=== PATIENT | male | born 1975 | race Caucasian/White ===

== ENCOUNTER → 2018-11-22 | Outpatient (CLI) | payer BC, OTHER ==
[~2018-11-22] MED LIST: BACLOFEN 10MG T10 MG PO; NABUMETONE 500500 M1 PO; WELLBUTRIN XL300 MG PO
--- NOTE | 2018-11-25 18:26 | SLE ---
[facility] [place] [address] POLYSOMNOGRAPHY STUDY Name: LUPE GUADARRAMA Room #: REG [facility]#: [id number] Admission: 11/22/18 ������������������ Attend Phys: Mic Queen MD Discharge: ������������������ Date of : 71 Report #: [id number] THIS REPORT FOR: //name// CC: Mic Cisneros MD DATE OF SERVICE: 11/22/2018 SLEEP STUDY ATTENDING PHYSICIAN: Dr. Marco Antonio Cisneros. The patient is 43 years old who weighs 255 pounds with a BMI of 36.6. The patient had a home sleep study and was found to have moderate ROGELIO at an AHI of 23 per hour. The patient returned for in-lab CPAP titration study performed at [facility]. During the night study, the patient spent 456 minutes in bed and slept for 404 minutes with a sleep efficiency of 88%. Sleep latency was 140 minutes, which was prolonged with a REM latency of 54 minutes. Overall, sleep architecture showed normal stage 1 sleep, increased stage 2 sleep, reduced N3 sleep and increased REM sleep, which is 29% of the total sleep time. EKG monitoring revealed normal sinus rhythm, average heart rate of 69 beats per minute. No sustained arrhythmias observed. No clinically significant PLMS seen. The patient was started on CPAP at a pressure of 5 cm water and titrated up to 12 cm water. At the final pressure, the patient slept for 101 minutes. The patient had 51 minutes of REM sleep and supine sleep throughout. The patient's AHI was reduced to 0.6 per hour and oxygen saturation remained above 92%. IMPRESSION: 1. Moderate sleep apnea diagnosed by recent home sleep study. 2. No clinically significant periodic limb movements of sleep. RECOMMENDATIONS: 1. CPAP at 12 cm water completely eliminated the patient's sleep apnea and should be used on a nightly basis. 2. Follow up in 4-6 weeks to assess compliance with CPAP and to document clinical improvement. 3. Weight loss is strongly advised. 4. Avoid STONER HAND depressants. [facility] [address] [place] [address] POLYSOMNOGRAPHY STUDY Name: LUPE GUADARRAMA Room #: REG [facility].#: [id number] Admission: 11/22/18 ������������������ Attend Phys: Mic Queen MD Discharge: ������������������ Date of : 71 Report #: [id number] 5. Cautioned regarding driving until symptoms of sleep apnea resolve with the use of CPAP. ��������������������������������������������� <ELECTRONICALLY SIGNED> ���������������������������������������� By: Mic Queen MD ��������������������������������������������� 11/25/18 [id number] [id number] Mic Queen MD /nt
== END ==
LOC: SLEEPLAB 16:20
DX: G47.30 Sleep apnea, unspecified (principal)

== ENCOUNTER → 2020-03-29 | Outpatient (CLI) | payer BC, OTHER ==
[~2020-03-29] VITALS: Ht 177.8 cm; Wt 126.5 kg
[~2020-03-29] MED LIST changes: +NORVASC10 MG PO; +TRAZODONE HCL50 MG PO
--- NOTE | ~2020-03-29 | HPC ---
[facility] [place] [address] PAIN MANAGEMENT CONSULTATION Name: LUPE GUADARRAMA Room #: REG JACKY BenavidezStefano#: [id number] Admission: 03/29/20 Attend Phys: Adarsh Cooley DO Discharge: Date of : 71 Report #: [id number] THIS REPORT FOR: cc: Elizabeth Gautam DNP, Mary E. DNP Johnson, James E. DO ~ CC: Adarsh AGUILAR DATE OF SERVICE: 03/29/2020 CHIEF COMPLAINT: Neck pain, right upper extremity pain with paresthesias. HISTORY OF PRESENT ILLNESS: As you know, the patient is a 44-year-old male who reports a greater than 1-month history of neck pain, right upper extremity pain with paresthesias. The patient denies injury or trauma that may have led to symptom development. He noted a recent increase in neck pain and right upper extremity pain after returning to the gym to begin exercise to address his increasing weight. He reports pain that radiates from the right neck all the way into the thumb and index finger. It is exacerbated with movement of the cervical spine, improves with rest and relaxation. The patient indicates the pain to be steady, sharp, stabbing, numbness and tingling. He places his current pain score 6/10. Other than the increase in pain during working out at the gym, he cannot attribute his symptom development to any specific injury or trauma. He has been referred to our service to discuss treatment options for suspected cervical radiculopathy. The patient indicates today pain is steady and continuous. He describes the pain as sharp, stabbing, numbness and tingling. He places current pain score 4/10, daily average at 6/10, worst pain has been 7/10. The patient states that pain is improved with lying down and sometimes with repositioning. He indicates nothing tends to improve pain. Due to lack of improvement with conservative treatment options, the patient was referred to our clinic to discuss treatment options for suspected cervical radiculopathy. He is seen here today without new imaging. We do have an MRI from 2014, which showed changes at C5-C6 and C6-C7, but otherwise a relatively normal MRI. PAST MEDICAL HISTORY: 1. Depression. 2. Hypertension. 3. Insomnia. PAST SURGICAL HISTORY: Ear surgery, 2002. SOCIAL HISTORY: The patient reports he is a continual smoker, he smokes 08/29 [facility] [address] [place] [address] PAIN MANAGEMENT CONSULTATION Name: LUPE GUADARRAMA Room #: REG JACKY Mariluz#: [id number] Admission: 03/29/20 Attend Phys: Adarsh Cooley DO Discharge: Date of : 71 Report #: [id number] pack tobacco per day and has done so for 15 years. He admits to a consistent use of marijuana. He also admits to the use of alcohol at least once a day. He is working, not receiving workmen's compensation nor is he trying to obtain disability benefits. He is unaccompanied at today's visit. REVIEW OF SYSTEMS: Positive for fatigue and weakness, frequent and recurrent headaches, numbness and tingling sensations involving the right upper extremity, depression and insomnia. All other review of systems negative per 12-point review of systems other than those listed in history of present illness. Pain impact score 39/70 indicating moderate interference of daily activities secondary to pain. IMAGING: No new imaging available. PHYSICAL EXAMINATION: VITAL SIGNS: Blood pressure 149/100, pulse is 70, respiratory rate 16 and unlabored. The patient is 96% on room air. Height 5 feet 10 inches tall, weight 278.8 pounds, BMI calculated 40. GENERAL: Well-developed, well-nourished, well-hydrated, class 2, morbidly obese 44-year-old male appearing stated age, pain is rated today at 6/10. HEENT: Normocephalic, atraumatic. Pupils equal, round and reactive to light. Extraocular muscles are intact. Sclerae nonicteric without injection. NEUROLOGIC: Cranial nerves 2-12 grossly intact. Speech is fluent. The patient deemed a good historian. LUNGS: Clear, no wheezes, rhonchi or rales. CARDIOVASCULAR: Regular. No appreciable gallop or rub. ABDOMEN: Soft, obese, normal active bowel sounds. EXTREMITIES: Show no clubbing, no cyanosis, no edema. MUSCULOSKELETAL: Upper extremity strength appears symmetrical 5/5 and slight giveaway strength noted with materials management manager over the index finger and thumb on the right when compared to left. There are no changes from activity standpoint in the musculature when comparing left upper extremity to right. Spurling's test is positive on the right, negative left. Cervical provocation testing is met with increased pain with lateral flexion and rotation to the right. He has equal and symmetrical deep tendon reflexes 2+/4, biceps, brachialis and triceps. ASSESSMENT: 1. Cervical radiculopathy. 2. Cervical spondylosis with radiculopathy. 3. Chronic intractable pain. 4. Essential hypertension. 5. Morbid obesity. PLAN: 1. Based on today's physical exam and history the patient has provided, the [facility] [address] [place] [address] PAIN MANAGEMENT CONSULTATION Name: LUPE GUADARRAMA Room #: REG JACKY Mcgraw#: [id number] Admission: 03/29/20 Attend Phys: Adarsh Cooley DO Discharge: Date of : 71 Report #: [id number] description the patient uses in regards to pain as well as the location of symptoms, it would appear he is suffering from cervical radiculopathy. Cervical provocation testing and Spurling's test is positive on the right consistent with cervical radicular symptoms. The patient's distribution appears to be on the C6 dermatome. We discussed with the patient the treatment options available based on the physical exam as we do not have imaging available to determine the extent of pathology in the cervical region. The following was discussed with the patient today. We discussed physical therapy, stretching exercises and traction techniques as a treatment option. We discussed medication management utilizing neuropathic pain medication such as amitriptyline, nortriptyline, Cymbalta and Lyrica as well as possibly gabapentin. We discussed cervical epidural injections under fluoroscopic guidance and ultimately surgical options. After reviewing risks and benefits of all proposed treatment options, the patient chose to undergo imaging and discuss cervical epidural injection at our next visit depending on the pathology found from imaging. 2. The patient will be sent for x-ray imaging of the cervical spine, we will review those findings once they are available. We will contact the patient with the findings. 3. Depending on the findings of the x-ray imaging, we may ultimately need to have the patient undergo a cervical MRI. Cervical MRI will provide us with information in regards to the soft tissues, specifically the central canal, the neural foraminal potential encroachments and disk positioning. We will determine whether or not an MRI of the cervical spine will be necessary based on x-ray imaging. 4. We will have the patient return in 1 week for further evaluation and discuss the possibility of undergoing cervical epidural injections. We are hopeful by that time the patient will have completed his imaging studies and will be able to review those findings. 5. I have recommended the patient follow up with his primary care team as quickly as possible. His blood pressure today is 149/100 and needs to be treated aggressively, given his young age and the elevated diastolic pressure that is most concerning. The patient needs to follow up with his PCP as quickly as possible. 6. We wish to thank Elizabeth Gautam for the referral of the patient to our clinic. We will keep you apprised of his response to treatment as we address suspected cervical radiculopathy. We will also keep you apprised of the findings of the imaging studies once they are made available. He will be returning to discuss treatment for his essential hypertension. We will keep you apprised of his response to treatment for cervical radiculopathy [place] [address] PAIN MANAGEMENT CONSULTATION Name: LUPE GUADARRAMA Room #: REG JACKY Mcgraw#: [id number] Admission: 03/29/20 Attend Phys: Adarsh Cooley DO Discharge: Date of : 71 Report #: [id number] are deemed necessary. Again, we wish to thank you for the opportunity to see the patient in consultation. By: [id number] [id number] Adarsh Cooley DO /nt
[2020-03-29 08:39] VITALS: BP 149/100
--- NOTE | 2020-03-29 09:06 | NUR ---
Pain Clinic Assessment: 1. History of Osteoarthritis: Not Applicable History of Rheumatoid Arthritis: Not Applicable 2. Height: 5 ft. 10 in. 177.8 cm. Weight: 278.8 lb. oz. 126.463 kg. Patient's BMI: 40.0 3. Vital Signs: BP: 149/100 Pulse: 70 Resp: 16 Temp: 02 Sat: 96 ECG Mon: 4. Pain Intensity: 6 5. Fall Risk: Dizziness: N Needs help standing or walking: N Fallen in the last 3 months: N Fall risk comments: 6. Patient on Blood Thinner: None 7. History of Hypertension: Y 8. Opioid Therapy greater than 6 weeks: N Opiate Contract Signed: 9. Risk Assessment Tool Provided: Opioid Risk Tool 10. Functional Assessment Tool: 11. Recreational Drug Use: Past greater than 3 mos Drug Type: MARIJUANIA Tobacco Use: Former Smoker Tobacco Type: Cigarettes Amount or Packs/day: 1/4 How Many Years: 15 Alcohol Use: Yes Frequency: Weekly Quant: 10
== END ==
LOC: PAIN → RAD 06:44 → PAIN 06:44
PROVIDERS: ATTEND Anesthesiology Pain Medicine
DX: M47.22 Other spondylosis with radiculopathy, cervical region (principal); M79.641 Pain in right hand; R20.2 Paresthesia of skin; G89.29 Other chronic pain; I10 Essential (primary) hypertension; E66.01 Morbid (severe) obesity due to excess calories; M48.02 Spinal stenosis, cervical region; M50.122 Cervical disc disorder at C5-C6 level with radiculopathy

== ENCOUNTER → 2020-04-04 | Outpatient (CLI) | payer BC, OTHER | LOC: MRI 13:24 | PROVIDERS: ATTEND Anesthesiology Pain Medicine | DX: M47.812 Spondylosis without myelopathy or radiculopathy, cervical region (principal); M48.02 Spinal stenosis, cervical region; M25.78 Osteophyte, vertebrae; M50.21 Other cervical disc displacement, high cervical region ==

== ENCOUNTER → 2020-04-05 | Outpatient (CLI) | payer BC, OTHER ==
[~2020-04-05] VITALS: Ht 177.8 cm; Wt 125.6 kg
--- NOTE | ~2020-04-05 | HPC ---
[facility] [address] [place] [address] PAIN MANAGEMENT CONSULTATION Name: LUPE GUADARRAMA Room #: REG JACKY CarrascoStefanoJeancarlosStefano#: [id number] Admission: 04/05/20 Attend Phys: Adarsh Cooley DO Discharge: Date of : 71 Report #: [id number] THIS REPORT FOR: cc: Elizabeth Gautam DNP, Mary E. DNP Johnson, James E. DO ~ CC: Adarsh Gautam MILITARY PROFESSIONAL DATE OF SERVICE: 04/05/2020 CHIEF COMPLAINT: Neck pain, right upper extremity pain with paresthesias. HISTORY OF PRESENT ILLNESS: As you know, the patient is a very pleasant 44-year-old male who returned to our clinic on 03/29/2020 with a 1-month history of increasing neck pain, right upper extremity pain with paresthesias. He believes he may have injured his neck while doing exercises at the gym. He subsequently discontinued these exercises, but continued to experience symptoms. He returned to our clinic to discuss options for treatment. We saw the patient in consultation on that day and advised the patient that further imaging would be necessary as we only had MRI from 2014 and with a new distribution of symptoms and new intensity of pain, it was important to followup to determine what may have changed. He returns today in followup visit to discuss the findings of his MRI. He is placing pain today at 2/10. He denies new injury, trauma or any changes in medical history since our visit of 03/29/2020. ALLERGIES: No known drug allergies. CURRENT MEDICATIONS: Bupropion XL 300 mg once a day, amlodipine 10 mg once a day, trazodone 50 mg p.o. at bedtime. SOCIAL HISTORY: Remains the same. He reports he smokes cigarettes about 3 cigarettes per day and has done so for the past 8 years. He admits to the use of marijuana on a near daily basis. He drinks approximately 8 drinks per week. He is working, not receiving workmen's compensation, unaccompanied today. IMAGING: MRI of the cervical spine obtained 04/04/2020 shows significant changes at the C5-C6 and C6-C7 levels with degenerative changes resulting in severe central canal stenosis. This has increased from [id number] central canal stenosis in 2014. The patient was advised the spinal canal at C5-C6 measures 6.8 mm and C6-C7 measures 5.6 mm. PHYSICAL EXAMINATION: VITAL SIGNS: Blood pressure 158/98, pulse 81, respiratory rate 18 and unlabored. The patient is 98% on room air. Height 5 feet 10 inches [place], [place] [address] PAIN MANAGEMENT CONSULTATION Name: LUPE GUADARRAMA Room #: [facility]#: [id number] Admission: 04/05/20 Attend Phys: Adarsh Cooley DO Discharge: Date of : 71 Report #: [id number] weight 277 pounds, BMI calculated 39.7. GENERAL: Well-developed, well-nourished, well-hydrated exogenously obese 44-year-old male. He appears stated age. He is placing pain today at 2/10. HEENT: Normocephalic, atraumatic. Pupils equal, round and reactive. Speech fluent. EXTREMITIES: Show no clubbing, no cyanosis, and no appreciable edema. MUSCULOSKELETAL: Upper extremity strength remains symmetrical 5/5. Slight giveaway strength is once again noted on the right when compared to left, this is mainly with sample body builder strength of the index and thumb when compared to left. Cervical provocation testing is met with increased pain, specifically with lateral flexion and rotation to the right. Spurling's test positive on the right. ASSESSMENT: 1. Cervical radiculopathy. 2. Severe cervical central canal stenosis. 3. Cervical spondylosis with radiculopathy. 4. Chronic intractable pain. PLAN: 1. The patient returns today in followup visit where we have reviewed his MRI in its entirety. I have advised the patient of the findings at the C5-C6 and C6-C7 levels, which has shown a significant change since the 2014 imaging, which only showed mild changes at the C5-C6 and C6-C7 level. The patient now has severe central canal stenosis measuring 6.8 mm at C5-C6 and measuring 5.6 mm at C6-C7. There is also noted severe neural foraminal stenosis at both levels. After this review over the findings of his MRI and how they correlate to his current symptoms, we discussed treatment options we have available. Following was discussed with the patient today. We discussed physical therapy, stretching exercises and traction techniques as a treatment option. We discussed medication management adding neuropathic medications to his current list of therapies. We discussed cervical epidural injection under fluoroscopic guidance and ultimately surgical decompression at the C5-C6 and C6-C7 level. After reviewing the risks and benefits of all proposed treatment options, the patient chose to begin with a cervical epidural injection under fluoroscopic guidance. 2. The patient was advised of the risks and benefits of a cervical epidural injection. These risks include but are not necessarily limited to; bleeding, bruising, infection, worsening of pain, no relief of pain, temporary or permanent muscle weakness, temporary or permanent nerve damage, possible paralysis and . The patient states understood and wished to proceed. 3. No medication changes made at today's visit. The patient will continue current medical therapy as prior prescribed. 4. We did provide the patient with names of neurosurgeons we would recommend for him to look into, to determine if he wishes a referral to any one of these [facility] [address] [place] [address] PAIN MANAGEMENT CONSULTATION Name: LUPE GUADARRAMA Room #: REG RUBIMaggy Benavidez.#: [id number] Admission: 04/05/20 Attend Phys: Adarsh Cooley DO Discharge: Date of : 71 Report #: [id number] individuals who are skilled at treatment for cervical radiculopathy secondary to stenosis. He will review those names and determine who is covered by his insurance and who he could see most rapidly. He will contact our clinic if he requests a referral. 5. We will see the patient back in followup visit in about 31 days. At that time, review the efficacy of today's cervical epidural injection to determine if next in the series might be warranted. DESCRIPTION OF PROCEDURE: C7-T1 cervical epidural steroid injection under fluoroscopic guidance. After obtaining written consent, the patient was taken back to fluoroscopy suite, placed in prone position with separate pillows under chest and forehead to decrease cervical lordosis. Skin overlying the cervical area then prepped and draped in aseptic fashion. C7-T1 cervical interspace was identified by AP fluoroscopy. Skin and subcutaneous tissue overlying target site of injection anesthetized with 3 mL of 1% lidocaine. A 20-gauge 3-1/2 inch Tuohy needle advanced under fluoroscopic guidance towards the epidural space using midline approach. Epidural space identified using loss of resistance to air technique. After negative aspiration for heme or cerebrospinal fluid, 1 mL of Omnipaque injected. Cervical epidurogram was confirmed using both AP and lateral fluoroscopy. After negative aspiration for heme or cerebrospinal fluid, 5 mL of a solution containing 2 mL 40 mg per mL, 80 mg total triamcinolone along with 3 mL of lidocaine 1% injected slowly. Needle retracted senior living, flushed with 1 mL of 1% lidocaine and removed. Sterile bandage placed over injection site. No new motor deficits present in the upper extremities following the procedure. The patient tolerated the procedure well, carefully escorted to recovery room in stable condition. No apparent complications. After meeting discharge criteria, the patient was then discharged home. By: [id number] Adarsh Cooley DO /nt
[2020-04-05 13:48] VITALS: BP 158/98
--- NOTE | 2020-04-05 13:52 | NUR ---
Pain Clinic Assessment: 1. History of Osteoarthritis: Not Applicable History of Rheumatoid Arthritis: Not Applicable 2. Height: 5 ft. 10 in. 177.8 cm. Weight: 277.0 lb. oz. 125.647 kg. Patient's BMI: 39.7 3. Vital Signs: BP: 158/98 Pulse: 81 Resp: 18 Temp: 02 Sat: 98 ECG Mon: 4. Pain Intensity: 2 5. Fall Risk: Dizziness: N Needs help standing or walking: N Fallen in the last 3 months: N Fall risk comments: 6. Patient on Blood Thinner: None 7. History of Hypertension: Y 8. Opioid Therapy greater than 6 weeks: N Opiate Contract Signed: 9. Risk Assessment Tool Provided: Opioid Risk Tool 10. Functional Assessment Tool: 39 11. Recreational Drug Use: Past greater than 3 mos Drug Type: MARIJUANA Tobacco Use: Former Smoker Tobacco Type: Cigarettes Amount or Packs/day: 3 CIGARETTES How Many Years: 8 Alcohol Use: Yes Frequency: Weekly Quant: 8 LIQUOR/BEER
== END | disposition home or self-care (01) ==
LOC: PAIN 06:58
PROVIDERS: ATTEND Anesthesiology Pain Medicine
DX: M47.22 Other spondylosis with radiculopathy, cervical region (principal); M48.02 Spinal stenosis, cervical region; G89.29 Other chronic pain; F17.210 Nicotine dependence, cigarettes, uncomplicated; Z98.890 Other specified postprocedural states; Z79.899 Other long term (current) drug therapy; Z79.891 Long term (current) use of opiate analgesic

== ENCOUNTER → 2020-05-17 | Outpatient (CLI) | payer OTHER | LOC: CAT 13:50 | PROVIDERS: ATTEND Family Medicine | DX: Z13.6 Encounter for screening for cardiovascular disorders (principal); I25.10 Atherosclerotic heart disease of native coronary artery without angina pectoris; E78.00 Pure hypercholesterolemia, unspecified ==